=== PATIENT | female | born 1940 | race Caucasian/White ===

== ENCOUNTER 2018-12-06 18:38 | Observation (INO) ==
[2018-12-06] MEDS ORDERED: Morphine Sulfate 2 MG/ML SYRINGE IVP ONE (18:48)
[2018-12-06] MEDS ORDERED: Ondansetron 4 MG/2 ML VIAL IVP ONE (18:48)
[2018-12-06 19:16] LABS: Basophils # 0.1 K/mcL (0.0-0.2); Basophils % 0.3 %; Eosinophils # 0.2 K/mcL (0.0-0.6); Eosinophils % 1.3 %; Hematocrit 38.5 % (35.3-44.9); Hemoglobin 12.2 g/dL (11.5-15.4); Immature Granulocytes % 0.5 % (0-4); Lymphocytes % 28.6 %; Mean Corpuscular HGB Conc 31.7 g/dL (31.6-35.5); Mean Corpuscular Volume 88.3 fL (83.0-100.0); Mean Platelet Volume 9.5 fL (9.4-12.4); Monocytes # 1.6 K/mcL (0.0-1.3); Monocytes % 8.9 %; Neutrophils # 10.6 K/mcL (1.6-8.9); Platelet Count 169 K/mcL (140-400); Red Blood Count 4.36 M/mcL (3.82-4.97); Red Cell Distribution Width 14.9 % (11.5-14.5); Segmented Neutrophils % 60.4 %; White Blood Count 17.5 K/mcL (4.3-11.1)
[2018-12-06 19:25] LABS: Prothrombin Time 11.7 Seconds (9.4-12.1)
[2018-12-06 19:37] LABS: Alanine Aminotransferase 8 Units/L (7-52); Albumin 3.9 g/dL (3.5-5.7); Albumin/Globulin Ratio 1.7 (1.1-2.2); Alkaline Phosphatase 95 Units/L (34-104); Aspartate Amino Transferase 12 Units/L (13-39); BUN/Creatinine Ratio 29 (6-26); Bilirubin,Total 0.6 mg/dL (0.3-1.0); Blood Urea Nitrogen 27 mg/dL (8-23); Calcium 8.9 mg/dL (8.6-10.3); Carbon Dioxide 26 mEq/L (23-29); Chloride 104 mEq/L (98-107); Globulin 2.3 g/dL (2.4-3.5); Glucose 149 mg/dL (70-105); Osmolality,Calculated 296 (280-300); Potassium 3.7 mEq/L (3.5-5.1); Sodium 139 mEq/L (136-145); Total Protein 6.2 g/dL (6.4-8.9); Troponin I < 0.03 ng/mL (< 0.04); eGFR For African Americans > 60 (> 60); eGFR For Non-African Americans 58 (> 60)
[2018-12-06 19:51] LABS: Thyroid Stimulating Hormone 2.607 mcIU/mL (0.340-5.600)
[2018-12-06] MEDS ORDERED: Naloxone 0.4 MG/ML INJ IVP PRN (22:23)
[2018-12-06] MEDS ORDERED: Ibuprofen 400 MG TABLET PO PRN (22:23)
[2018-12-06] MEDS ORDERED: Ibuprofen 600 MG TABLET PO SCH (22:23)
[2018-12-06] MEDS ORDERED: Ondansetron 4 MG/2 ML VIAL IVP PRN (22:23)
[2018-12-06] MEDS: *HR* LORazepam 0.5 MG TABLET PO SCH (23:10)
[2018-12-07] MEDS: *HR* HYDROcodone/Acet 5/325 mg TABLET PO PRN ×2 (04:21→14:06)
[2018-12-07] MEDS ORDERED: Ibuprofen 600 MG TABLET PO SCH (08:00)
[2018-12-07] MEDS: 0.45 % Sodium Chloride w/KCl 20 MEQ/1,000 ML MLS IVC SCH ×2 (08:23→15:51)
[2018-12-07] MEDS: *HR* LORazepam 0.5 MG TABLET PO SCH ×2 (08:25→20:52)
[2018-12-07] MEDS: Cholecalciferol (D-3) 1,000 UNIT (25MCG) TABLET PO SCH (08:25)
[2018-12-07] MEDS: Aspirin 81 MG TAB.CHEW PO SCH (08:25)
[2018-12-07] MEDS ORDERED: Isosorbide MONOnitrate (24 HR) 30 MG TAB.ER.24H PO SCH (09:00)
[2018-12-07] MEDS ORDERED: Lisinopril 20 MG TABLET PO SCH (09:00)
[2018-12-07] MEDS ORDERED: hydroCHLOROthiazide 25 MG TABLET PO SCH (09:00)
[2018-12-07] MEDS ORDERED: Lisinopril-HCTZ 20-12.5mg TABLET PO SCH (09:00)
[2018-12-07] MEDS ORDERED: Furosemide 20 MG TABLET PO SCH (09:00)
[2018-12-07] MEDS ORDERED: NON-FORMULARY MEDICATION 1 EACH EACH (Pantoprazole Sodium [Protonix] 40 MG) PO SCH (09:00)
[2018-12-07 12:04] LABS: Magnesium 1.5 mg/dL (1.6-2.6)
[2018-12-07] MEDS: (Liraglutide [Victoza 2-Pak] 0.6 MG) SQ SCH (13:32)
[2018-12-07] MEDS: Magnesium Oxide 400 MG TABLET PO SCH (20:52)
[2018-12-07 21:35] LABS: Estimated Average Glucose 148 mg/dl
[2018-12-08] MEDS: *HR* HYDROcodone/Acet 5/325 mg TABLET PO PRN (00:05)
[2018-12-08] MEDS: 0.45 % Sodium Chloride w/KCl 20 MEQ/1,000 ML MLS IVC SCH ×2 (00:05→08:35)
[2018-12-08] MEDS ORDERED: *HR* Enoxaparin 40 MG/0.4 ML SYRINGE SQ SCH (06:00)
[2018-12-08] MEDS: Cholecalciferol (D-3) 1,000 UNIT (25MCG) TABLET PO SCH (09:54)
[2018-12-08] MEDS: Magnesium Oxide 400 MG TABLET PO SCH (09:54)
[2018-12-08] MEDS: *HR* LORazepam 0.5 MG TABLET PO SCH (09:55)
[2018-12-08] MEDS: Aspirin 81 MG TAB.CHEW PO SCH (09:55)
[2018-12-08] MEDS: (Liraglutide [Victoza 2-Pak] 0.6 MG) SQ SCH (10:03)
[2018-12-08] MEDS ORDERED: Cyanocobalamin (B-12) 1,000 MCG/ML VIAL IM ONE (10:16)
[2018-12-08 10:34] VITALS: BP 101/58
[2018-12-08] MEDS ORDERED: FLU Vac QV 19-20 (6Month+)/PF 0.5 ML SYRINGE IM ONE (10:51)
== END 2018-12-08 11:30 | disposition home or self-care (01) ==
LOC: INPPIK 18:38 → EMEROOPIK 18:38 → INPPIK 21:10
PROVIDERS: ADMIT Internal Medicine; ATTEND Internal Medicine

== ENCOUNTER 2021-08-19 14:03 | Inpatient (IN) ==
[2021-08-19] MEDS ORDERED: *HR* Dextrose 50 % in Water (Syg) 50 ML SYRINGE IVP PRN (14:15)
[2021-08-19] MEDS ORDERED: D5% in Water 1,000 ML IVC PRN (14:15)
[2021-08-19] MEDS ORDERED: Dextrose Gel 15 GM/37.5 ML TUBE PO PRN ×2 (14:15)
[2021-08-19] MEDS ORDERED: Acetaminophen 325 MG TABLET PO PRN (14:22)
[2021-08-19] MEDS ORDERED: Ondansetron ODT 4 MG TAB.RAPDIS SL PRN (14:22)
[2021-08-19] MEDS: Insulin LISPRO 300 UNITS/3 ML VIAL SUBQ SCH ×2 (17:01→19:36)
[2021-08-19] MEDS: *HR* OxyCODONE Immed Rel 5 MG TABLET PO PRN (19:55)
[2021-08-20 07:16] LABS: Basophils % 0.3 %; Eosinophils # 0.3 K/mcL (0.0-0.6); Eosinophils % 2.1 %; Hematocrit 35.9 % (35.3-44.9); Immature Granulocytes % 0.6 % (0-4); Lymphocytes # 5.3 K/mcL (0.6-4.6); Lymphocytes % 38.6 %; Mean Corpuscular HGB Conc 30.6 g/dL (31.6-35.5); Mean Corpuscular Hemoglobin 27.4 pg (28.0-33.3); Mean Corpuscular Volume 89.5 fL (83.0-100.0); Mean Platelet Volume 9.6 fL (9.4-12.4); Monocytes % 7.4 %; Platelet Count 147 K/mcL (140-400); Red Blood Count 4.01 M/mcL (3.82-4.97); Red Cell Distribution Width 15.4 % (11.5-14.5); White Blood Count 13.8 K/mcL (4.3-11.1)
[2021-08-20 07:46] LABS: BUN/Creatinine Ratio 22 (6-26); Blood Urea Nitrogen 20 mg/dL (8-23); Calcium 8.6 mg/dL (8.6-10.3); Carbon Dioxide 33 mEq/L (23-29); Chloride 101 mEq/L (98-107); Glucose 153 mg/dL (70-105); Osmolality,Calculated 298 (280-300); Potassium 3.9 mEq/L (3.5-5.1); Sodium 141 mEq/L (136-145); eGFR For African Americans > 60 (> 60); eGFR For Non-African Americans 58 (> 60)
[2021-08-20] MEDS: Insulin LISPRO 300 UNITS/3 ML VIAL SUBQ SCH ×4 (08:46→21:27)
[2021-08-20] MEDS: Cholecalciferol (D-3) 1,000 UNIT (25MCG) TABLET PO SCH (10:06)
[2021-08-20] MEDS: BuPROPion XL (24 HR) 150 MG TABLET PO SCH (10:07)
[2021-08-20] MEDS: Isosorbide MONOnitrate (24 HR) 30 MG TAB.ER.24H PO SCH (10:07)
[2021-08-20] MEDS: Celecoxib 100 MG CAPSULE PO SCH (10:07)
[2021-08-20] MEDS: Aspirin Enteric Coated 81 MG Tablet PO SCH (10:08)
[2021-08-20] MEDS: *HR* LORazepam 0.5 MG TABLET PO SCH (21:55)
[2021-08-20] MEDS: amLODIPine 5 MG TABLET PO SCH (21:55)
[2021-08-20] MEDS: Sennosides/Docusate Sodium TABLET PO SCH (22:43)
[2021-08-21] MEDS: Insulin LISPRO 300 UNITS/3 ML VIAL SUBQ SCH ×4 (08:49→20:23)
[2021-08-21] MEDS: Aspirin Enteric Coated 81 MG Tablet PO SCH (08:50)
[2021-08-21] MEDS: BuPROPion XL (24 HR) 150 MG TABLET PO SCH (08:50)
[2021-08-21] MEDS: Celecoxib 100 MG CAPSULE PO SCH (08:51)
[2021-08-21] MEDS: Isosorbide MONOnitrate (24 HR) 30 MG TAB.ER.24H PO SCH (08:51)
[2021-08-21] MEDS: Cholecalciferol (D-3) 1,000 UNIT (25MCG) TABLET PO SCH (08:52)
[2021-08-21] MEDS: *HR* OxyCODONE Immed Rel 5 MG TABLET PO PRN (08:55)
[2021-08-21] MEDS: amLODIPine 5 MG TABLET PO SCH (20:21)
[2021-08-21] MEDS: Sennosides/Docusate Sodium TABLET PO SCH (20:22)
[2021-08-21] MEDS: *HR* LORazepam 0.5 MG TABLET PO SCH (20:22)
[2021-08-22 05:58] LABS: Basophils # 0.1 K/mcL (0.0-0.2); Basophils % 0.4 %; Eosinophils # 0.3 K/mcL (0.0-0.6); Eosinophils % 2.2 %; Hematocrit 37.7 % (35.3-44.9); Hemoglobin 11.7 g/dL (11.5-15.4); Immature Granulocytes % 0.7 % (0-4); Mean Corpuscular Hemoglobin 27.4 pg (28.0-33.3); Mean Corpuscular Volume 88.3 fL (83.0-100.0); Mean Platelet Volume 9.4 fL (9.4-12.4); Monocytes # 1.1 K/mcL (0.0-1.3); Neutrophils # 6.7 K/mcL (1.6-8.9); Platelet Count 193 K/mcL (140-400); Red Blood Count 4.27 M/mcL (3.82-4.97); Red Cell Distribution Width 15.5 % (11.5-14.5); Segmented Neutrophils % 43.7 %; White Blood Count 15.3 K/mcL (4.3-11.1)
[2021-08-22 06:33] LABS: BUN/Creatinine Ratio 22 (6-26); Blood Urea Nitrogen 21 mg/dL (8-23); Calcium 9.1 mg/dL (8.6-10.3); Carbon Dioxide 31 mEq/L (23-29); Chloride 100 mEq/L (98-107); Glucose 162 mg/dL (70-105); Magnesium 1.7 mg/dL (1.6-2.6); Osmolality,Calculated 295 (280-300); Potassium 4.2 mEq/L (3.5-5.1); Sodium 139 mEq/L (136-145); eGFR For African Americans > 60 (> 60); eGFR For Non-African Americans 56 (> 60)
[2021-08-22] MEDS: BuPROPion XL (24 HR) 150 MG TABLET PO SCH (08:25)
[2021-08-22] MEDS: Isosorbide MONOnitrate (24 HR) 30 MG TAB.ER.24H PO SCH (08:26)
[2021-08-22] MEDS: Aspirin Enteric Coated 81 MG Tablet PO SCH (08:27)
[2021-08-22] MEDS: Celecoxib 100 MG CAPSULE PO SCH (08:28)
[2021-08-22] MEDS: Cholecalciferol (D-3) 1,000 UNIT (25MCG) TABLET PO SCH (08:35)
[2021-08-22] MEDS: Insulin LISPRO 300 UNITS/3 ML VIAL SUBQ SCH ×4 (08:44→20:32)
[2021-08-22] MEDS: *HR* OxyCODONE Immed Rel 5 MG TABLET PO PRN ×2 (09:44→14:34)
[2021-08-22] MEDS: amLODIPine 5 MG TABLET PO SCH (20:46)
[2021-08-22] MEDS: *HR* LORazepam 0.5 MG TABLET PO SCH (20:46)
[2021-08-22] MEDS: Sennosides/Docusate Sodium TABLET PO SCH (20:46)
[2021-08-23] MEDS: Celecoxib 100 MG CAPSULE PO SCH (08:39)
[2021-08-23] MEDS: Aspirin Enteric Coated 81 MG Tablet PO SCH (08:39)
[2021-08-23] MEDS: Isosorbide MONOnitrate (24 HR) 30 MG TAB.ER.24H PO SCH (08:39)
[2021-08-23] MEDS: BuPROPion XL (24 HR) 150 MG TABLET PO SCH (08:41)
[2021-08-23] MEDS: Cholecalciferol (D-3) 1,000 UNIT (25MCG) TABLET PO SCH (08:41)
[2021-08-23] MEDS: *HR* OxyCODONE Immed Rel 5 MG TABLET PO PRN ×2 (08:41→14:46)
[2021-08-23] MEDS: Insulin LISPRO 300 UNITS/3 ML VIAL SUBQ SCH ×4 (08:41→20:52)
[2021-08-23] MEDS: Sennosides/Docusate Sodium TABLET PO SCH (20:52)
[2021-08-23] MEDS: amLODIPine 5 MG TABLET PO SCH (20:52)
[2021-08-23] MEDS: *HR* LORazepam 0.5 MG TABLET PO SCH (20:52)
[2021-08-24] MEDS: *HR* OxyCODONE Immed Rel 5 MG TABLET PO PRN ×3 (05:40→18:30)
[2021-08-24] MEDS: Insulin LISPRO 300 UNITS/3 ML VIAL SUBQ SCH ×4 (08:44→21:44)
[2021-08-24] MEDS: Celecoxib 100 MG CAPSULE PO SCH (08:45)
[2021-08-24] MEDS: Cholecalciferol (D-3) 1,000 UNIT (25MCG) TABLET PO SCH (08:45)
[2021-08-24] MEDS: Aspirin Enteric Coated 81 MG Tablet PO SCH (08:45)
[2021-08-24] MEDS: Isosorbide MONOnitrate (24 HR) 30 MG TAB.ER.24H PO SCH (08:45)
[2021-08-24] MEDS: BuPROPion XL (24 HR) 150 MG TABLET PO SCH (08:46)
[2021-08-24] MEDS: Sennosides/Docusate Sodium TABLET PO SCH (21:43)
[2021-08-24] MEDS: *HR* LORazepam 0.5 MG TABLET PO SCH (21:43)
[2021-08-24] MEDS: amLODIPine 5 MG TABLET PO SCH (21:44)
[2021-08-25] MEDS: *HR* OxyCODONE Immed Rel 5 MG TABLET PO PRN ×2 (08:34→20:21)
[2021-08-25] MEDS: Celecoxib 100 MG CAPSULE PO SCH (08:35)
[2021-08-25] MEDS: BuPROPion XL (24 HR) 150 MG TABLET PO SCH (08:35)
[2021-08-25] MEDS: Isosorbide MONOnitrate (24 HR) 30 MG TAB.ER.24H PO SCH (08:35)
[2021-08-25] MEDS: Cholecalciferol (D-3) 1,000 UNIT (25MCG) TABLET PO SCH (08:35)
[2021-08-25] MEDS: Aspirin Enteric Coated 81 MG Tablet PO SCH (08:35)
[2021-08-25] MEDS: Insulin LISPRO 300 UNITS/3 ML VIAL SUBQ SCH ×4 (08:36→20:02)
[2021-08-25] MEDS: *HR* LORazepam 0.5 MG TABLET PO SCH (20:20)
[2021-08-25] MEDS: amLODIPine 5 MG TABLET PO SCH (20:20)
[2021-08-25] MEDS: Sennosides/Docusate Sodium TABLET PO SCH (20:21)
[2021-08-26 07:16] VITALS: RESP 16; TEMP 97.9; O2SAT 94
[2021-08-26 08:09] VITALS: BP 125/65; PULSE 61
[2021-08-26] MEDS: Celecoxib 100 MG CAPSULE PO SCH (08:10)
[2021-08-26] MEDS: Isosorbide MONOnitrate (24 HR) 30 MG TAB.ER.24H PO SCH (08:10)
[2021-08-26] MEDS: BuPROPion XL (24 HR) 150 MG TABLET PO SCH (08:11)
[2021-08-26] MEDS: Cholecalciferol (D-3) 1,000 UNIT (25MCG) TABLET PO SCH (08:11)
[2021-08-26] MEDS: Insulin LISPRO 300 UNITS/3 ML VIAL SUBQ SCH (08:11)
[2021-08-26] MEDS: Aspirin Enteric Coated 81 MG Tablet PO SCH (10:17)
== END 2021-08-26 10:46 | disposition home health service (06) | DRG 556 ==
LOC: INPPIK 16:19
PROVIDERS: ADMIT Family Medicine; ATTEND Family Medicine